=== PATIENT | female | born 1975 | race Caucasian/White ===

== ENCOUNTER → 2019-08-26 | Outpatient (CLI) | payer MEDICARE, OTHER ==
[~2019-08-26] MED LIST: ACULAR 3 ML3 M1 OP; CIPRO500 MG PO; DONNATAL1 TAB PO; FLEXERIL10 MG PO; LOMOTIL 0.025 M1 TA1 PO; MOTRIN800 MG PO; PREVACID SOLUTA30 MG PO; TOBREX 5 ML5 ML OPH; VICODIN 5/500 505 MG PO; ZANTAC150 MG PO; ZOFRAN ODT4 MG SL
== END | disposition home or self-care (01) ==
LOC: CT 07:16
DX: K57.90 Diverticulosis of intestine, part unspecified, without perforation or abscess without bleeding (principal); R10.11 Right upper quadrant pain